=== PATIENT | male | born 1995 | race Two or more races ===

== ENCOUNTER 2019-04-29 17:48 | Emergency (ER) | payer SELFPAY ==
[2019-04-29 17:57] VITALS: BP 132/67
--- NOTE | 2019-04-29 18:54 | ER Document Report ---
ED Medical Screen (RME) - General Stated Complaint: BLOOD IN URINE, RIGHT FLANK PAIN Time Seen by Provider: 04/29/19 18:49 - HPI Notes: 04/29/19 18:51 Patient is a 23-year-old male who presents complaining of hematuria that he noticed today. Patient states that he has had some right mid abdominal soreness, but no flank pain and no radiation of that pain. Patient denies any history of kidney stones. Denies drug allergies. He is able to eat and drink without difficulty. He is having normal bowel movements. No fever. I have treated and performed a rapid initial assessment of this patient. A comprehensive ED assessment and evaluation of the patient, analysis of test results and completion of medical decision making process will be conducted by additional ED providers. PHYSICAL EXAMINATION: GENERAL: Well-appearing, well-nourished and in no acute distress. A&Ox4. Answers questions appropriately. Abd: Limited exam in triage. + mild tenderness mid rt abd. Needs further eval. - Related Data Allergies/Adverse Reactions: No Known Allergies Allergy (Verified 04/29/19 18:47) Physical Exam - Vital signs Vitals: Temp Pulse Resp BP Pulse Ox 98.0 F 64 16 132/67 H 98 04/29/19 17:56 04/29/19 17:56 04/29/19 17:56 04/29/19 17:56 04/29/19 17:56 Course - Vital Signs Vital signs: Temp Pulse Resp BP Pulse Ox 98.0 F 64 16 132/67 H 98 04/29/19 17:56 04/29/19 17:56 04/29/19 17:56 04/29/19 17:56 04/29/19 17:56
[2019-04-29 19:37] LABS: ABSOLUTE EOSINOPHILS # (AUTO) 0.2 10^3/uL (0.0-0.6); ABSOLUTE LYMPHOCYTES (AUTO) 1.6 10^3/uL (0.5-4.7); ABSOLUTE MONOCYTES (AUTO) 0.5 10^3/uL (0.1-1.4); ABSOLUTE NEUT (AUTO) 3.8 10^3/uL (1.7-8.2); BASOPHILS % (AUTO) 0.7 % (0-2); EOSINOPHILS % (AUTO) 2.5 % (0-6); HEMOGLOBIN 16.1 g/dL (13.5-17.0); LYMPHOCYTES % (AUTO) 26.4 % (13-45); MEAN CORPUSCULAR HEMOGLOBIN 31.3 pg (27.0-33.4); MEAN CORPUSCULAR HGB CONC 34.1 g/dL (32.0-36.0); MEAN CORPUSCULAR VOLUME 92 fl (80-97); MONOCYTES % (AUTO) 7.7 % (3-13); PLATELET COUNT 180 10^3/uL (150-450); RED BLOOD COUNT 5.13 10^6/uL (4.35-5.55); RED CELL DISTRIBUTION WIDTH 14.3 % (11.5-14.0); SEGMENTED NEUTROPHILS % (AUTO) 62.7 % (42-78); TOTAL CELLS COUNTED % (AUTO) 100 %; WHITE BLOOD COUNT 6.1 10^3/uL (4.0-10.5)
[2019-04-29 20:00] LABS: ALBUMIN 4.7 g/dL (3.5-5.0); ALKALINE PHOSPHATASE 86 U/L (38-126); ANION GAP 10 (5-19); ASPARTATE AMINO TRANSFERASE 24 U/L (17-59); BILIRUBIN,DIRECT 0.2 mg/dL (0.0-0.4); BLOOD UREA NITROGEN 14 mg/dL (7-20); CALCIUM 9.5 mg/dL (8.4-10.2); CARBON DIOXIDE 26 mmol/L (22-30); CHLORIDE 104 mmol/L (98-107); GLUCOSE 88 mg/dL (75-110); POTASSIUM 4.1 mmol/L (3.6-5.0); TOTAL PROTEIN 7.8 g/dL (6.3-8.2)
[2019-04-29 20:01] LABS: APPEARANCE,URINE SLIGHTLY-CLOUDY; BILIRUBIN,URINE NEGATIVE (NEGATIVE); COLOR,URINE YELLOW; GLUCOSE, URINE NEGATIVE (NEGATIVE); KETONES,URINE NEGATIVE (NEGATIVE); PROTEIN,URINE NEGATIVE (NEGATIVE); URINE SPECIFIC GRAVITY 1.016
--- NOTE | 2019-04-29 21:13 | ER Document Report ---
ED GI/ - General Chief Complaint: Flank Pain Stated Complaint: BLOOD IN URINE, RIGHT FLANK PAIN Time Seen by Provider: 04/29/19 18:49 Mode of Arrival: Ambulatory Information source: Patient Notes: 23-year-old male presented to ED for complaint of hematuria in his urine today. He states he has some right flank pain radiating to the mid right abdomen. He does have tenderness to palpation to the right kidney. He states he does smoke 1 to 3 packs a day mostly 2 packs a day drinks 2-3 times a week to 3 beers a day smokes pot daily he states he does do a lot of heavy working out and he also works as construction. He states he also drinks a lot of energy drinks as well as caffeine. He states he has never had blood in his urine in the past. He is alert oriented respirations regular and unlabored speaking in full sentences. TRAVEL OUTSIDE OF THE [place] IN LAST 30 DAYS: No - HPI Patient complains to provider of: Abdominal pain - Right, Flank pain - Right, Hematuria Onset: This afternoon Timing/Duration: Gradual Quality of pain: Achy Severity at maximum: Moderate Severity in ED: Mild Pain Level: 1 Location: RUQ, Right flank Associated symptoms: Hematuria, Other - Right flank pain Exacerbated by: Movement Relieved by: Denies Similar symptoms previously: No Recently seen / treated by doctor: No - Related Data Allergies/Adverse Reactions: No Known Allergies Allergy (Verified 04/29/19 18:47) Past Medical History - General Information source: Patient - Social History Smoking Status: Current Every Day Smoker Cigarette use (# per day): Yes - 2 packs/day Chew tobacco use (# tins/day): Yes Smoking Education Provided: Yes Frequency of alcohol use: Social - 3-4 beers 2-3 times a week Drug Abuse: Marijuana - Daily Occupation: Construction Lives with: Family Family History: Reviewed & Not Pertinent Patient has suicidal ideation: No Patient has homicidal ideation: No - Past Medical History Cardiac Medical History: Reports: None Pulmonary Medical History: Reports: None EENT Medical History: Reports: None Neurological Medical History: Reports: None Endocrine Medical History: Reports: None Renal/ Medical History: Reports: None Malignancy Medical History: Reports None GI Medical History: Reports: None Musculoskeletal Medical History: Reports None Skin Medical History: Reports None Psychiatric Medical History: Reports: None Traumatic Medical History: Reports: None Infectious Medical History: Reports: None Surgical Hx: Negative - Immunizations Immunizations up to date: Yes Review of Systems - Review of Systems Constitutional: No symptoms reported EENT: No symptoms reported Cardiovascular: No symptoms reported Respiratory: No symptoms reported Gastrointestinal: No symptoms reported Genitourinary: Flank pain, Hematuria Male Genitourinary: No symptoms reported Musculoskeletal: Muscle pain Skin: No symptoms reported Hematologic/Lymphatic: No symptoms reported Neurological/Psychological: No symptoms reported -: Yes All other systems reviewed and negative Physical Exam - Vital signs Vitals: Temp Pulse Resp BP Pulse Ox 98.0 F 64 16 132/67 H 98 04/29/19 17:56 04/29/19 17:56 04/29/19 17:56 04/29/19 17:56 04/29/19 17:56 Interpretation: Normal - General General appearance: Appears well, Alert - HEENT Head: Normocephalic, Atraumatic Eyes: Normal Pupils: PERRL - Respiratory Respiratory status: No respiratory distress Chest status: Nontender Breath sounds: Normal Chest palpation: Normal - Cardiovascular Rhythm: Regular Heart sounds: Normal auscultation Murmur: No - Abdominal Inspection: Normal Distension: No distension Bowel sounds: Normal Tenderness: Tender - righ upper quad and flank tenderness Organomegaly: No organomegaly - Back Back: Normal, Nontender, CVA tenderness - right - Extremities General upper extremity: Normal inspection, Nontender, Normal color, Normal ROM, Normal temperature General lower extremity: Normal inspection, Nontender, Normal color, Normal ROM, Normal temperature, Normal weight bearing. No: Marlyn's sign - Neurological Neuro grossly intact: Yes Cognition: Normal Orientation: AAOx4 [place] Coma Scale Eye Opening: Spontaneous [place] Coma Scale Verbal: Oriented Bernie Coma Scale Motor: Obeys Commands [place] Coma Scale Total: 15 Speech: Normal Motor strength normal: LUE, RUE, LLE, RLE Sensory: Normal - Psychological Associated symptoms: Normal affect, Normal mood - Skin Skin Temperature: Warm Skin Moisture: Dry Skin Color: Normal Course - Re-evaluation Re-evalutation: 04/29/19 21:15 Start work-up to rule out rhabdomyolysis. He does heavy lifting heavy workouts construction drinks a lot of energy drinks and caffeine smokes 1 or 2 packs a day drinks 2-3 times a week and had done a heavy workout just before the pain and blood started. Patient told staff that he had to go to [place] his girlfriend and he was leaving and would come back if the developed more pain. - Vital Signs Vital signs: Temp Pulse Resp BP Pulse Ox 98.0 F 64 16 132/67 H 98 04/29/19 17:56 04/29/19 17:56 04/29/19 17:56 04/29/19 17:56 04/29/19 17:56 - Laboratory Result Diagrams: 04/29/19 19:12 04/29/19 19:12 Laboratory results interpreted by me: 04/29/19 04/29/19 04/29/19 18:59 18:59 19:12 RDW 14.3 H Creatine Kinase Urine Blood SMALL H Urine Urobilinogen 2.0 H Leukocyte Esterase Rfl SMALL H Chlamydia DNA (PCR) DETECTED H 04/29/19 19:12 RDW Creatine Kinase 234 H Urine Blood Urine Urobilinogen Leukocyte Esterase Rfl Chlamydia DNA (PCR) Discharge - Discharge Clinical Impression: Right flank pain Hematuria Qualifiers: Hematuria type: gross Qualified Code(s): R31.0 - Gross hematuria Disposition: ELOPED
[2019-04-29 21:23] LABS: CHLAM PCR DETECTED (NOT DETECT)
== END 2019-04-29 21:08 | disposition left against medical advice (07) ==
LOC: ER 17:48
DX: R10.9 Unspecified abdominal pain (principal); R31.0 Gross hematuria; F17.210 Nicotine dependence, cigarettes, uncomplicated; Z53.29 Procedure and treatment not carried out because of patient's decision for other reasons
CPT/HCPCS: 36415; 80053; 81001; 82550; 85025; 87086; 87491; 87591; 99281

== ENCOUNTER 2019-10-10 10:27 | Emergency (ER) | payer SELFPAY ==
[2019-10-10 10:33] VITALS: BP 136/78
--- NOTE | 2019-10-10 10:41 | ER Document Report ---
ED Medical Screen (RME) - General Chief Complaint: Eye Problem Stated Complaint: RIGHT EYE PAIN, REDNESS Time Seen by Provider: 10/10/19 10:35 Mode of Arrival: Ambulatory Information source: Patient Notes: 24-year-old male presented to ED for subconjunctival hemorrhage to the right lateral aspect of the eye. He states it started yesterday from 2 PM. He states he did not get hit or injured. He states he has pain and pressure in the right eye. He states she has very poor vision and has not had his vision checked in a long time but this is painful. Patient is alert oriented respirations regular nonlabored speaking in full sentences. Patient is alert oriented respirations regular nonlabored speaking in full sentences. He states he smokes 2 packs a day drinks about every 2 or 3 weeks and smokes pot. I have greeted and performed a rapid initial assessment of this patient. A comprehensive ED assessment and evaluation of the patient, analysis of test results and completion of medical decision making process will be conducted by an additional ED providers. TRAVEL OUTSIDE OF THE [place] IN LAST 30 DAYS: No - Related Data Allergies/Adverse Reactions: No Known Allergies Allergy (Verified 10/10/19 10:33) Past Medical History - Social History Chew tobacco use (# tins/day): No Frequency of alcohol use: Social Drug Abuse: None - Immunizations Immunizations up to date: Yes Physical Exam - Vital signs Vitals: Temp Pulse Resp BP Pulse Ox 98.5 F 61 14 136/78 H 99 10/10/19 10:31 10/10/19 10:31 10/10/19 10:31 10/10/19 10:31 10/10/19 10:31 Course - Vital Signs Vital signs: Temp Pulse Resp BP Pulse Ox 98.5 F 61 14 136/78 H 99 10/10/19 10:33 10/10/19 10:31 10/10/19 10:31 10/10/19 10:31 10/10/19 10:31
--- NOTE | 2019-10-10 11:12 | ER Document Report ---
Entered by LORENZA ANAYA SCRIBE 10/10/19 1105 Acting as scribe for:JARETT RAMIREZ DO ED Eye Complaint - General Chief Complaint: Eye Problem Stated Complaint: RIGHT EYE PAIN, REDNESS Time Seen by Provider: 10/10/19 10:35 Mode of Arrival: Ambulatory Information source: Patient Notes: This 24 year old male patient presents to the emergency department today with redness of the lateral right eye. Patient states yesterday he noticed the redness of his right eye and denies any injury or trauma. Patient states he cannot see well and lost his glasses a while ago, which he has still not replaced. TRAVEL OUTSIDE OF THE [place] IN LAST 30 DAYS: No - Related Data Allergies/Adverse Reactions: No Known Allergies Allergy (Verified 10/10/19 10:33) Past Medical History - General Information source: Patient - Social History Smoking Status: Current Every Day Smoker Cigarette use (# per day): Yes Chew tobacco use (# tins/day): No Frequency of alcohol use: Social Drug Abuse: None Family History: Reviewed & Not Pertinent Patient has homicidal ideation: No - Immunizations Immunizations up to date: Yes Review of Systems - Review of Systems Constitutional: No symptoms reported EENT: See HPI, Other - R eye redness Cardiovascular: No symptoms reported Respiratory: No symptoms reported Gastrointestinal: No symptoms reported Genitourinary: No symptoms reported Male Genitourinary: No symptoms reported Musculoskeletal: No symptoms reported Skin: No symptoms reported Hematologic/Lymphatic: No symptoms reported Neurological/Psychological: No symptoms reported -: Yes All other systems reviewed and negative Physical Exam - Vital signs Vitals: Temp Pulse Resp BP Pulse Ox 98.5 F 61 14 136/78 H 99 10/10/19 10:31 10/10/19 10:31 10/10/19 10:31 10/10/19 10:31 10/10/19 10:31 - General General appearance: Appears well, Alert - HEENT Head: Normocephalic, Atraumatic Eyes: Normal Conjunctiva: Other - Subconjunctival hemorrhage - R eye Cornea: Normal Extraocular movements intact: Yes Eyelashes: Normal Pupils: PERRL Visual acuity- Right eye: 20/70 Visual acuity- Left eye: 20/100 Visual acuity- Both eyes: 20/50 Corrective lenses worn: No - Respiratory Respiratory status: No respiratory distress Chest status: Nontender Breath sounds: Normal Chest palpation: Normal - Cardiovascular Rhythm: Regular Heart sounds: Normal auscultation Murmur: No - Abdominal Inspection: Normal Distension: No distension Bowel sounds: Normal Tenderness: Nontender - Extremities General upper extremity: Normal inspection. No: Edema General lower extremity: Normal inspection. No: Edema - Neurological Neuro grossly intact: Yes Cognition: Normal Orientation: AAOx4 - Psychological Associated symptoms: Normal affect, Normal mood - Skin Skin Temperature: Warm Skin Moisture: Dry Skin Color: Normal Course - Re-evaluation Re-evalutation: 10/10/19 11:12 MDM 24 year old male with right eye subconjunctival hem. He spontanously developed this in last 24 hours. No change in vision. Discussed he may use visine or other lubricating otc drops and he expressed understadning. - Vital Signs Vital signs: Temp Pulse Resp BP Pulse Ox 98.5 F 61 14 136/78 H 99 10/10/19 10:33 10/10/19 10:31 10/10/19 10:31 10/10/19 10:31 10/10/19 10:31 Discharge - Discharge Clinical Impression: Subconjunctival hemorrhage of right eye Condition: Good Disposition: HOME, SELF-CARE Instructions: Eyedrop Use ([facility]), Subconjunctival Hemorrhage ([facility]) Additional Instructions: Follow up with the eye doctor to get your glasses replaced. Please return here for any visual change or other problems or other concerns. Use eye drops as needed to right eye. I personally performed the services described in the documentation, reviewed and edited the documentation which was dictated to the scribe in my presence, and it accurately records my words and actions.
== END 2019-10-10 11:27 | disposition home or self-care (01) ==
LOC: ER 10:27
DX: H11.31 Conjunctival hemorrhage, right eye (principal); H57.11 Ocular pain, right eye; F17.210 Nicotine dependence, cigarettes, uncomplicated
CPT/HCPCS: 99282